=== PATIENT | male | born 1990 | race Two or more races ===

== ENCOUNTER 2022-01-08 13:21 | Emergency (ER) | payer MEDICAID ==
[~2022-01-08] VITALS: Ht 182.9 cm; Wt 90.0 kg
[~2022-01-08 13:21] MED LIST: LORA0.5T20 PO; PANT40TA2 PO; QUET200T30; SEROQUEL; VISTARIL
[2022-01-08] MEDS ORDERED: SODIUM CHLORIDE 0.9% 500 ML IVB ONE (13:30)
[2022-01-08 13:50] LABS: Basophils # (auto) 0.1 10 ^3/uL (0-0.2); Basophils % (auto) 0.8 % (0.0-2.0); Eosinophils # (auto) 0 10 ^3/uL (0-0.8); Eosinophils % (auto) 0.1 % (0.0-7.0); Hematocrit 34.4 % (41.0-53.0); Hemoglobin 11.6 g/dL (13.5-17.5); Lymphocytes # (auto) 1.3 10 ^3/uL (0.4-5.4); Lymphocytes % (auto) 14.7 % (10.0-50.0); Mean Corpuscular Hemoglobin 30.3 pg (28.0-32.0); Mean Corpuscular Hgb Conc. 33.7 g/dL (32.0-36.0); Mean Corpuscular Volume 89.8 fL (80.0-100.0); Monocytes # (auto) 0.6 10 ^3/uL (0-1.3); Neutrophils # (auto) 6.9 10 ^3/uL (1.6-8.6); Neutrophils % (auto) 77.4 % (37.0-80.0); Red Blood Cells 3.83 10^6/uL (4.5-5.90); Red Cell Distribution Width 13.5 % (11.8-14.3); White Blood Cell 8.9 10^3/uL (4.4-10.8)
[2022-01-08 14:13] LABS: Albumin 3.3 g/dL (3.4-5.0); Calcium 7.9 mg/dL (8.5-10.1); Salicylate 1.8 mg/dL (2.8-20.0)
[2022-01-08 14:16] LABS: Bilirubin, Total 0.4 mg/dL (0.2-1.0); Total Protein 6.8 g/dL (6.4-8.2)
[2022-01-08 14:17] LABS: BUN/Creatinine Ratio 6.8
[2022-01-08 14:19] LABS: Potassium 2.9 mmol/L (3.5-5.1)
[2022-01-08 14:20] LABS: Acetaminophen < 2.0 ug/mL (10-30)
[2022-01-08] MEDS ORDERED: POTASSIUM CHL 20MEQ/100ML 100 ML IV ONE (14:30)
[2022-01-08 15:01] LABS: Urine WBC None Seen /hpf (0 - 3)
[2022-01-08 15:09] LABS: Urine Bacteria NONE SEEN /hpf (None Seen); Urine Blood Negative /uL (Negative); Urine Specific Gravity 1.036 (1.001-1.035)
[2022-01-08 15:33] LABS: Alcohol, Urine < 3.0 mg/dL (0-10); Amphetamine Screen, Urine POSITIVE (NEGATIVE); Barbiturate Scree,Urine NEGATIVE (NEGATIVE); Benzodiazephine Screen, Urine POSITIVE (NEGATIVE); Cannabinoid Screen, Urine POSITIVE (NEGATIVE); Cocaine Screen, Urine NEGATIVE (NEGATIVE); Opiate Scree,Urine POSITIVE (NEGATIVE); Phencyclidine Screen, Urine NEGATIVE (NEGATIVE)
[2022-01-08] MEDS ORDERED: ONDANSETRON HCL 4 MG/2 ML VIAL IV ONE (17:00)
[2022-01-08] MEDS ORDERED: MORPHINE SULFATE 4 MG/ML SYR/VIAL IV ONE (21:30)
[2022-01-09 00:45] LABS: Albumin 3.5 g/dL (3.4-5.0); BUN/Creatinine Ratio 7.8; Calcium 8.6 mg/dL (8.5-10.1); Potassium 3.5 mmol/L (3.5-5.1)
[2022-01-09 00:47] LABS: Bilirubin, Total 0.4 mg/dL (0.2-1.0); Total Protein 7.1 g/dL (6.4-8.2)
[2022-01-09] MEDS ORDERED: MORPHINE SULFATE 4 MG/ML SYR/VIAL IV ONE ×2 (01:30→08:15)
[2022-01-09] MEDS ORDERED: ONDANSETRON HCL 4 MG/2 ML VIAL IV ONE (08:15)
[2022-01-09] MEDS ORDERED: chlordiazePOXIDE HCL 25 MG CAP PO ONE (10:15)
[2022-01-09] MEDS: GABAPENTIN 300 MG CAP PO SCH ×3 (10:27→22:49)
[2022-01-09] MEDS ORDERED: PANTOPRAZOLE 40 MG/10 ML VIAL INJ IV ONE (20:30)
[2022-01-09] MEDS ORDERED: MORPHINE SULFATE INJ 2 MG/ml SYRG IV ONE (20:30)
[2022-01-10] MEDS: GABAPENTIN 300 MG CAP PO SCH ×3 (06:35→22:21)
[2022-01-10] MEDS ORDERED: MORPHINE SULFATE 4 MG/ML SYR/VIAL IV ONE (08:15)
[2022-01-10] MEDS ORDERED: ONDANSETRON HCL 4 MG/2 ML VIAL IV ONE (08:15)
[2022-01-10] MEDS: THIAMINE HCL 100 MG TAB PO SCH (10:45)
[2022-01-10] MEDS: FOLIC ACID 1 MG TAB PO SCH (10:45)
[2022-01-10] MEDS ORDERED: IBUPROFEN 800 MG TAB PO ONE (14:15)
[2022-01-10] MEDS ORDERED: HYDROcodone-ACET 10/325MG TAB PO ONE (14:30)
[2022-01-10] MEDS ORDERED: diphenhdrAMINE HCL 25 MG CAP PO ONE ×2 (14:30→23:45)
[2022-01-10] MEDS ORDERED: traMADol HCL 50 MG TAB PO ONE (23:30)
[2022-01-11] MEDS: GABAPENTIN 300 MG CAP PO SCH ×3 (06:13→22:13)
[2022-01-11] MEDS: FOLIC ACID 1 MG TAB PO SCH (10:00)
[2022-01-11] MEDS: THIAMINE HCL 100 MG TAB PO SCH (10:00)
[2022-01-11 12:49] LABS: Urine Bacteria NONE SEEN /hpf (None Seen); Urine Blood Negative /uL (Negative); Urine Hyaline Cast FEW /lpf (0 - 2); Urine Specific Gravity 1.012 (1.001-1.035); Urine WBC <1 /hpf (0 - 3)
[2022-01-11] MEDS ORDERED: chlordiazePOXIDE HCL 25 MG CAP PO ONE (13:45)
[2022-01-11] MEDS ORDERED: LORazepam 0.5 MG TAB PO ONE (16:15)
[2022-01-11] MEDS ORDERED: GABAPENTIN 300 MG CAP PO ONE (16:15)
[2022-01-11] MEDS ORDERED: GABAPENTIN 300 MG CAP ONE (22:10)
[2022-01-12] MEDS ORDERED: LORazepam 0.5 MG TAB ONE (00:14)
[2022-01-12] MEDS ORDERED: LORazepam 0.5 MG TAB PO ONE (00:15)
[2022-01-12] MEDS ORDERED: HYDROcodone-ACET 5/325MG TAB PO ONE ×2 (00:45→15:00)
[2022-01-12] MEDS ORDERED: HYDROcodone-ACET 5/325MG TAB ONE (00:46)
[2022-01-12] MEDS: GABAPENTIN 300 MG CAP PO SCH ×3 (06:00→22:00)
[2022-01-12] MEDS: THIAMINE HCL 100 MG TAB PO SCH (10:22)
[2022-01-12] MEDS: FOLIC ACID 1 MG TAB PO SCH (10:22)
[2022-01-12 21:00] VITALS: BP 118/76
[2022-01-12] MEDS ORDERED: diphenhdrAMINE HCL 25 MG CAP PO ONE (23:30)
== END 2022-01-13 18:02 | disposition home or self-care (01) ==
LOC: EDBD 13:21 → EDUNIT# 13:21 → ER 13:24
DX: S62.102A Fracture of unspecified carpal bone, left wrist, initial encounter for closed fracture (principal); T40.422A Poisoning by tramadol, intentional self-harm, initial encounter; F32.9 Major depressive disorder, single episode, unspecified; K21.9 Gastro-esophageal reflux disease without esophagitis; F17.210 Nicotine dependence, cigarettes, uncomplicated; F12.10 Cannabis abuse, uncomplicated; Z79.899 Other long term (current) drug therapy; X58.XXXA Exposure to other specified factors, initial encounter; Y93.89 Activity, other specified; Y92.89 Other specified places as the place of occurrence of the external cause; Y99.8 Other external cause status
CPT/HCPCS: 36415; 80053; 80307; 80320; 80329; 81001; 85025; 96361; 96374; 96375; 96376; 99285; C9113; J2270; J2405; J3480; J7030

== ENCOUNTER 2022-01-29 23:52 | Emergency (ER) | payer MEDICAID ==
[~2022-01-29] VITALS: Ht 188 cm; Wt 77.0 kg
[2022-01-30] MEDS ORDERED: SODIUM CHLORIDE 0.9% 1,000 ML IV ONE ×2 (00:15→05:15)
[2022-01-30 01:13] LABS: Basophils # (auto) 0.1 10 ^3/uL (0-0.2); Basophils % (auto) 1.5 % (0.0-2.0); Eosinophils # (auto) 0.2 10 ^3/uL (0-0.8); Eosinophils % (auto) 2.1 % (0.0-7.0); Hematocrit 43.8 % (41.0-53.0); Hemoglobin 14.8 g/dL (13.5-17.5); Lymphocytes # (auto) 2.2 10 ^3/uL (0.4-5.4); Lymphocytes % (auto) 25.4 % (10.0-50.0); Mean Corpuscular Hemoglobin 30.8 pg (28.0-32.0); Mean Corpuscular Hgb Conc. 33.8 g/dL (32.0-36.0); Mean Corpuscular Volume 91.1 fL (80.0-100.0); Monocytes # (auto) 0.8 10 ^3/uL (0-1.3); Neutrophils # (auto) 5.4 10 ^3/uL (1.6-8.6); Nucleated Red Blood Cells % 0.1 %; Red Blood Cells 4.81 10^6/uL (4.5-5.90); Red Cell Distribution Width 14.1 % (11.8-14.3); White Blood Cell 8.7 10^3/uL (4.4-10.8)
[2022-01-30 01:26] LABS: Salicylate 2.6 mg/dL (2.8-20.0)
[2022-01-30 01:27] LABS: Calcium 8.5 mg/dL (8.5-10.1); Potassium 3.7 mmol/L (3.5-5.1)
[2022-01-30 01:30] LABS: Acetaminophen < 2.0 ug/mL (10-30); BUN/Creatinine Ratio 8.2
[2022-01-30 01:32] LABS: Bilirubin, Total 0.2 mg/dL (0.2-1.0); Total Protein 7.7 g/dL (6.4-8.2)
[2022-01-30] MEDS ORDERED: LORazepam 2MG/ML-1ML VIAL IV ONE ×2 (05:15→10:45)
[2022-01-30] MEDS ORDERED: chlordiazePOXIDE HCL 25 MG CAP PO ONE (05:15)
[2022-01-30] MEDS ORDERED: ONDANSETRON HCL 4 MG/2 ML VIAL IV ONE (05:15)
[2022-01-30 06:01] LABS: Urine Bacteria NONE SEEN /hpf (None Seen); Urine Blood Negative /uL (Negative); Urine WBC <1 /hpf (0 - 3)
[2022-01-30 06:11] LABS: Amphetamine Screen, Urine NEGATIVE (NEGATIVE); Barbiturate Scree,Urine NEGATIVE (NEGATIVE); Benzodiazephine Screen, Urine POSITIVE (NEGATIVE); Cannabinoid Screen, Urine POSITIVE (NEGATIVE); Cocaine Screen, Urine NEGATIVE (NEGATIVE); Opiate Scree,Urine NEGATIVE (NEGATIVE)
[2022-01-30 06:18] LABS: Phencyclidine Screen, Urine NEGATIVE (NEGATIVE)
[2022-01-30] MEDS ORDERED: SODIUM CHLORIDE 0.9% 2,000 ML IV ONE (08:15)
[2022-01-30] MEDS ORDERED: PROCHLORPERAZINE EDISYLATE 5 MG/ML 2ML VIAL IV ONE (10:30)
[2022-01-30 11:00] VITALS: BP 125/73
[2022-01-30] MEDS ORDERED: CHL10C PO (17:18)
[2022-01-30] MEDS ORDERED: chlordiazePOXIDE HCL 5 MG CAP PO ONE (17:30)
== END 2022-01-30 17:36 | disposition home or self-care (01) ==
LOC: ER 23:52
DX: R45.851 Suicidal ideations (principal); K21.9 Gastro-esophageal reflux disease without esophagitis; F17.210 Nicotine dependence, cigarettes, uncomplicated; Z20.822 Contact with and (suspected) exposure to COVID-19
CPT/HCPCS: 36415; 70450; 71045; 80053; 80307; 80320; 80329; 81001; 85025; 87426; 93005; 96361; 96374; 96375; 96376; 99285; J0780; J2060; J2405; J7030

== ENCOUNTER 2024-04-05 02:30 | Emergency (ER) | payer MEDICAID ==
[~2024-04-05] VITALS: Ht 172.7 cm; Wt 77.0 kg
[~2024-04-05 02:30] MED LIST changes: +CHL10C PO; +LORA-1121 PO; -LORA0.5T20 PO
--- NOTE | 2024-04-05 02:47 | ED.PDOC ---
Psychiatric HPI Comments 33-year-old male who came to ER via EMS for suicide ideations. Patient does have history of alcohol and substance abuse., does have history of anxiety and depression, but has been off his medications. Patient has been binge drinking recently because he is depressed due to recent of a friend. He denies any recent drug use. States he feels suicidal recently but has no concrete plans on how to do it. Denies being homicidal. Denies any hallucinations. Chief Complaint: Suicidal Time Seen by MD: 02:47 Primary Care Provider: NONE Reviewed Notes: Nurses Notes Information Source: Patient Mode of Arrival: EMS Severity: Unable to Care for Self, Unable to Control Self Severity of Pain: Moderate Severity of Mental Status: Moderate Severity of Symptoms: Moderate Timing: Hours Presents with: Depression, Anxiety, Unclear Thinking, Suicidal Ideation Circumstance: Medical Clearance, Causing a Disturbance Current substance abuse: ETOH, Amphetamines Stressors: Relationships History of: Depression, Anxiety, Alcoholism, Substance Abuse Associated signs and symptoms: Depression, Hopeless, Anxiety, ETOH, Amphetamines Past Medical History PAST MEDICAL HISTORY: Anxiety, Depression, GERD, PUD Surgical History: Denies all surgeries Family History Family History: Family hx of HTN Social History Smoker: Cigarettes Alcohol: Heavy Drugs: Marijuana, Methamphetamine Lives In: Home Constitutional: denies: chills, diaphoresis, fatigue, fever, malaise, sweats, weakness, others EENTM: denies: blurred vision, double vision, ear bleeding, ear discharge, ear drainage, ear pain, ear ringing, eye pain, eye redness, hearing loss, mouth pain, mouth swelling, nasal discharge, nose bleeding, nose congestion, nose pain, photophobia, tearing, throat pain, throat swelling, voice changes, others Respiratory: denies: cough, hemoptysis, orthopnea, SOB at rest, shortness of breath, SOB with excertion, stridor, wheezing, others Cardiovascular: denies: chest pain, dizzy spells, diaphoresis, Dyspnea on exertion, edema, irregular heart beat, left arm pain, lightheadedness, palpitations, PND, syncope, others Gastrointestinal: denies: abdomen distended, abdominal pain, blood streaked bowels, constipated, diarrhea, dysphagia, difficulty swallowing, hematemesis, melena, nausea, poor appetite, poor fluid intake, rectal bleeding, rectal pain, vomiting, others Genitourinary: denies: burning, dysuria, flank pain, frequency, hematuria, incontinence, penile discharge, penile sore, pain, testicle pain, testicle swelling, urgency, others Neurological: denies: dizziness, fainting, headache, left sided numbness, left sided weakness, numbness, paresthesia, pre-existing deficit, right sided numbness, right sided weakness, seizure, speech problems, tingling, tremors, weakness, others Musculoskeletal: denies: back pain, gout, joint pain, joint swelling, muscle pain, muscle stiffness, neck pain, others Integumetry: denies: bruises, change in color, change in hair/nails, dryness, laceration, lesions, lumps, rash, wounds, others Allergic/Immunocompromised: denies: Difficulty Healing, Frequent Infections, Hives, Itching, others Hematologic/Lymphatic: denies: anemia, blood clots, easy bleeding, easy bruising, swollen glands, others Endocrine: denies: excessive hunger, excessive sweating, excessive thirst, excessive urination, flushing, intolerance to cold, intolerance to heat, unexplained weight gain, unexplained weight loss, others Psychiatric: reports: anxiety, depression, hopeless, panic disorder, suicidal; denies: bipolar disorder, schizophrenia, sleepless, others Physical Exam General Appearance: No Apparent Distress, Normal HEENT: Normal ENT Inspection, Pharynx Normal, TMs Normal Neck: Full Range of Motion, Non-Tender, Normal, Normal Inspection Respiratory: Chest Non-Tender, Lungs Clear, No Accessory Muscle Use, No Respiratory Distress, Normal Breath Sounds Cardiovascular: No Edema, No JVD, No Murmur, No Gallop, Normal Peripheral Pulses, Regular Rate/Rhythm Breast Exam: Deferred Gastrointestinal: No Organomegaly, Non Tender, No Pulsatile Mass, Normal Bowel Sounds, Soft Genitalia: Deferred Pelvic: Deferred Rectal: Deferred Extremities: No calf tenderness, Normal capillary refill, Normal inspection, Normal range of motion, Non-tender, No pedal edema Musculoskeletal : Apperance: Normal Neurologic: Alert, registered mail clerk II-XII nml as Tested, No Motor Deficits, Normal Affect, Normal Mood, No Sensory Deficits Cerebellar Function: Normal Reflexes: Normal Skin: Dry, Normal Color, Warm Lymphatic: No Adenopathy Was a procedure done? Was a procedure done?: No Psych Differential Dx Psych. Differential Dx: Anxiety, Depression, Hopeless, Panic Disorder, Suicidal Suicidal Differential Dx: Alcohol Abuse, Anxiety, Depression X-Ray, Labs, Meds, VS Vital Signs Date Time Temp Pulse Resp B/P (MAP) Pulse Ox O2 Delivery O2 Flow Rate FiO2 04/05/24 02:30 98.3 116 22 142/90 (107) 99 Lab Test 04/05/24 02:41 Range/Units White Blood Count Pending Red Blood Count Pending Hemoglobin Pending Hematocrit Pending Mean Corpuscular Volume Pending Mean Corpuscular Hemoglobin Pending Mean Corpuscular Hemoglobin Concent Pending Red Cell Distribution Width Pending Platelet Count Pending Mean Platelet Volume Pending Neutrophils (%) (Auto) Pending Lymphocytes (%) (Auto) Pending Monocytes (%) (Auto) Pending Basophils (%) (Auto) Pending Neutrophils # (Auto) Pending Lymphocytes # (Auto) Pending Monocytes # (Auto) Pending Sodium Level Pending Potassium Level Pending Chloride Level Pending Carbon Dioxide Level Pending Anion Gap Pending Blood Urea Nitrogen Pending Creatinine Pending Glomerular Filtration Rate Calc Pending BUN/Creatinine Ratio Pending Serum Glucose Pending Calcium Level Pending Salicylates Level Pending Acetaminophen Level Pending Plasma/Serum Blood Alcohol Pending Current Medications Medications (Trade) Dose Ordered Sig/Rebeca Route Start Time Stop Time Status Last Admin Haloperidol Lactate (Haldol) 10 mg ONCE ONCE IM 04/05/24 02:45 04/05/24 02:46 DC 04/05/24 03:05 Time of 1ST Reevaluation: 02:43 Reevaluation 1ST: Unchanged Patient Education/Counseling: Diagnosis, Treatment Family Education/Counseling: No Family Present Departure 1 Departure Time of Disposition: 03:11 (Patient to be evaluated for suicidal ideation.) Impression: Primary Impression: Suicide ideation Disposition: 30 STILL A PATIENT Condition: Serious Critical Care Note Critical Care Time?: No Stability Stability form required: No Heart Score Heart Score: Heart Score Response (Comments) Value History N/A 0 EKG N/A 0 Age N/A 0 Risk Factors N/A 0 Troponin N/A 0 Total 0 I personally scribed for ALFONSO SUAREZ MD ([email or web address]) on 04/05/24 at 02:47. Electronically submitted by Prosper Smith ([email or web address]). ALFONSO SUAREZ MD Apr 05, 2024 02:47
[2024-04-05] MEDS: HALOPERIDOL LACTATE 5 MG/ML INJ VIAL IM ONE (03:05)
[2024-04-05 03:10] VITALS: PULSE 89; RESP 18; O2SAT 95
[2024-04-05] MEDS: LORazepam 2MG/ML-1ML VIAL IV ONE (03:16)
[2024-04-05 03:17] LABS: Basophils # (auto) 0.1 10 ^3/uL (0-0.2); Basophils % (auto) 1.1 % (0.0-2.0); Eosinophils # (auto) 0.1 10 ^3/uL (0-0.8); Eosinophils % (auto) 0.9 % (0.0-7.0); Hematocrit 51.2 % (41.0-53.0); Hemoglobin 17.2 g/dL (13.5-17.5); Lymphocytes # (auto) 2.2 10 ^3/uL (0.4-5.4); Lymphocytes % (auto) 28.1 % (10.0-50.0); Mean Corpuscular Hemoglobin 30.4 pg (28.0-32.0); Mean Corpuscular Hgb Conc. 33.6 g/dL (32.0-36.0); Mean Corpuscular Volume 90.4 fL (80.0-100.0); Monocytes # (auto) 0.7 10 ^3/uL (0-1.3); Monocytes % (auto) 8.3 % (0.0-12.0); Neutrophils # (auto) 4.8 10 ^3/uL (1.6-8.6); Neutrophils % (auto) 61.6 % (37.0-80.0); Nucleated Red Blood Cells % 0.1 %; Platelet Count (auto) 303 10^3/uL (140-450); Red Blood Cells 5.66 10^6/uL (4.5-5.90); Red Cell Distribution Width 13.7 % (11.8-14.3); White Blood Cell 7.9 10^3/uL (4.4-10.8)
[2024-04-05] MEDS: LORazepam 2MG/ML-1ML VIAL IM ONE (03:17)
[2024-04-05 03:28] LABS: Salicylate < 3.0 mg/dL (-30)
[2024-04-05 03:32] LABS: Chloride 111 mmol/L (98-107); Potassium 3.1 mmol/L (3.5-5.1); Sodium 146 mmol/L (136-145)
[2024-04-05 03:33] LABS: Anion Gap 15 (5-15); Calcium 10.1 mg/dL (8.7-10.4); Carbon Dioxide 20 mmol/L (20-31)
[2024-04-05 03:38] LABS: BUN/Creatinine Ratio 5.3 (10.0-20.0); Blood Urea Nitrogen < 5 mg/dL (9-23); Glucose 100 mg/dL (74-106)
[2024-04-05 03:49] LABS: Blood Alcohol 296.3 mg/dL (<10)
[2024-04-05 03:52] LABS: Acetaminophen < 2.0 UG/ML (10.0-20.0)
[2024-04-05 08:00] VITALS: PULSE 72; RESP 18; O2SAT 94
[2024-04-05 16:00] LABS: Urine Bacteria None Seen /hpf (None Seen)
[2024-04-05] MEDS ORDERED: LORazepam 0.5 MG TAB PO ONE (16:00)
[2024-04-05] MEDS: LORazepam 0.5 MG TAB PO ONE (16:04)
[2024-04-05 16:09] LABS: Urine Blood Negative /uL (Negative); Urine Clarity Clear (Clear); Urine Color Yellow (Yellow); Urine Mucus FEW (None Seen); Urine Protein, UAD TRACE (Negative); Urine Specific Gravity 1.018 (1.001-1.035); Urine Urobilinogen Normal (Negative); Urine WBC 1 /hpf (0 - 3)
[2024-04-05 16:18] LABS: Amphetamine Screen, Urine Pos (NEGATIVE); Barbiturate Scree,Urine Neg (NEGATIVE); Benzodiazephine Screen, Urine Neg (NEGATIVE); Cannabinoid Screen, Urine Pos (NEGATIVE); Cocaine Screen, Urine Pos (NEGATIVE); Opiate Scree,Urine Neg (NEGATIVE); Phencyclidine Screen, Urine Neg (NEGATIVE)
[2024-04-05 19:32] VITALS: BP 112/67; PULSE 75; RESP 16; TEMP 98.2; O2SAT 95
--- NOTE | 2024-04-05 23:12 | DVHINCON2 ---
Date of Service if different f: Apr 05, 2024 Time of Service: 23:11 Consult Consult Note PSYCHIATRY ED NEW CONSULT HPI: 33 yo M pt with PPH of depression, bipolar, and anxiety presents to ED BIBA for safety, psychiatric stabilization and possible med initiation/optimization in setting of med noncompliance, ETOH intoxication, depression, anxiety, and passive SI. Psychiatry consulted for safety evaluation and recommendations in context of current presentation Per pt, reports several weeks ago discovered body of close friend which resulted pt to binge drink ETOH and worsening mood, anxiety and passive SI. Pt also reports recent med noncompliance. Pt now sober and no longer appears intoxicated. Currently endorses some depressed mood, racing thoughts, and non-specific anxiety symptoms but denies hopelessness, helplessness, isolation, negative thoughts, loss of interest, or anhedonia. Denies panic/OCD/PTSD symptoms. Sleep/appetite/energy/conc relatively WNL. Adamantly denies SI/HI. Denies AVH/paranoia/catatonic/perceptual disturbances/personality changes. No overt manic, psychotic, major depressive, cognitive, dissociative phenomena, panic, or somatic symptoms noted. Appears future oriented/goal directed Pt currently does have psychiatrist/therapist out in community although unclear f/u appts. Currently not on any psychotropic agents for past several months. Prior psych med trials include Li, depakote, Hydroxyzine. Some hx of med noncompliance. Also self medicating mood symptoms with ETOH and THC over past several weeks, appears to have long hx of THC/ETOH dependency and ecstasy abuse. Never , one child with some contact, unemployed, lives with family, no legal issues, some support system noted (immediate family). Unknown trauma hx. Unknown FH. No acute medical issues, hx of seizures/TBI, or recent head injuries, NKDA Does have hx of suicide attempt x 1 via cutting resulting in prior psych hospitalization in 2022. Denies history of violence, unprovoked aggression, or assaultive behaviors. Denies recent hx of impulsivity, attention seeking behavi ors, anger outbursts, emotional dysregulation, mood reactivity, or engaging in risky behaviors. Does not have access to firearms. Currently denies SI/HI. Identifies self/family as PPF. No safety concerns noted during encounter. MSE: General Appearance/Behavior: Alert and awake; appears stated age, well developed, fair grooming and hygiene; calm and cooperative, fair eye contact, no PMA/PMR Speech: coherent, rrr Thought Process: linear, logical, appears goal-directed Thought Content: Abnormal Thoughts and Perceptions: None Homicidality / Violent Thoughts: None Suicidality: adamantly denies SI Hallucinations: denies AVH Delusions: denies paranoia, persecutory, or grandiose delusions Obsessions /compulsions : None Judgment and Insight: fair/improved judgment with fair insight Mood & Affect: "little tired" with mood-congruent, minimally constricted/restricted, appropriate Orientation: oriented to person, place, time Attention/Concentration: appears intact Memory: grossly intact Language: no unusual or inappropriate language Assessment: 33 yo M pt with PPH of depression, bipolar, and anxiety presents to ED BIBA for safety, psychiatric stabilization and possible med initiation/optimization in setting of med noncompliance, ETOH intoxication, depression, anxiety, and passive SI. Currently denies SI/HI/AVH. Linear and appears future oriented/ goal directed in thought. Identifies several protective factors including a desire to live, family support, and seeking employment. Presently, pt does not show any signs of immediate danger to self or others that would warrant a higher level of care. Thus, pt does not meet criteria for 5150 or involuntary inpatient psych admission as is not DTS, DTO or GD although voluntary inpt psychiatric hospitalization was offered but pt respectfully declined. No acute safety concerns noted. Acute suicide risk is nonexistent to relatively low. Pts symptoms should be able to be managed safely in an outpatient setting with combination of psychopharmacology and psychotherapy with good prognosis if pt follows through with appropriate treatment recommendations. Pt currently does have psychiatrist/therapist out in community and remains future oriented to follow up with outpatient MH providers over the next several weeks for ongoing med management/psychotx Meantime, do feel that patient would benefit from a PRN anxiolytic to address anxiety symptoms that have been exacerbated prior to this admission. Primary Diagnosis: Adjustment disorder with depressed mood and anxiety. Mood dis order unspecified. ETOH use disorder, moderate. R/o SIMD Plan: Does not warrant involuntary inpatient psychiatric hospitalization or 5150 hold at this time No acute safety concerns Pt can be safely discharged back to current residence Resume outpatient psychotropics - med compliance emphasized Recommend discharging pt on 3-4 week rx for Hydroxyzine 50 mg bid prn anxiety Risks/benefits/alternative treatments discussed, informed consent provided by pt Supportive tx/motivational interviewing provided, discussed safety plan with pt Emphasized sleep hygiene, LIMIT THC/EtOH intake, abstain from IDU, and social activation Encouraged mindfulness techniques (reading, walking, meditation, exercise, deep breathing) during times of stress Pt planning on pursuing ongoing therapy/med management with outpatient MH providers over next several weeks Instructed pt to call [phone] or return to ED if mood symptoms worsen or new onset SI/HI upon discharge Pt verbalized understanding and is receptive to above tx plan This case was discussed with ED nurse/provider and all parties in agreement with above tx plan Tra Rodriguez MD Plan discussed with: Patient TRA RODRIGUEZ MD Apr 05, 2024 23:12
[2024-04-06] MEDS ORDERED: HYDR50TA32 PO (00:56)
--- NOTE | 2024-04-06 00:56 | ED.PDOC ---
Departure 1 Departure Time of Disposition: 03:11 (Patient to be evaluated for suicidal ideation.) Impression: Primary Impression: Suicide ideation Disposition: 30 STILL A PATIENT Condition: Serious Additional Instructions: It is important to follow up with the regular doctors. e-Prescriptions Hydroxyzine HCl (Hydroxyzine Hydrochloride) 50 Mg Tab 50 MG PO BID PRN for 30 Days, #60 TAB Prov: ALFONSO SUAREZ MD 04/06/24 Discharged With: Relative ALFONSO SUAREZ MD Apr 06, 2024 00:56
== END 2024-04-06 01:35 | disposition home or self-care (01) ==
LOC: EDBD 02:30 → ER 02:30
DX: R45.851 Suicidal ideations (principal); F41.9 Anxiety disorder, unspecified; K21.9 Gastro-esophageal reflux disease without esophagitis; F17.210 Nicotine dependence, cigarettes, uncomplicated; F12.90 Cannabis use, unspecified, uncomplicated; F15.90 Other stimulant use, unspecified, uncomplicated
CPT/HCPCS: 36415; 80048; 80307; 80320; 80329; 81001; 85025; 96372; 99285; J1630; J2060

== ENCOUNTER 2025-01-08 17:24 | Emergency (ER) | payer MEDICAID ==
[~2025-01-08] VITALS: Ht 185.4 cm; Wt 70.4 kg
[~2025-01-08 17:24] MED LIST changes: +HYDR50TA32 PO
[2025-01-08 17:25] VITALS: BP 152/116; PULSE 130; RESP 18; TEMP 98.1; O2SAT 97
--- NOTE | 2025-01-08 18:29 | ED.PDOC ---
Back pain HPI HPI Comments Pt presents to the ER with C/O back pain x2 days. Per pt he was wrestling with friend and fell on the end of couch with friend falling on top of him. Pt states he heard he back "crack" and has been having severe pain since. Patient complaining of mid back pain over spine radiating left and right side 10/10 on pain scale sharp and shooting pain. States nothing makes it better has not tried any [id number] medications. Patient denies numbness, weakness, loss of bowel bladder control, saddle anesthesia Chief Complaint: Back Pain Time Seen by MD: 18:12 Primary Care Provider: NONE Reviewed Notes: Nurses Notes, Medications, Allergies Allergies: Coded Allergies: NO KNOWN ALLERGIES (Unverified , 01/15/10) Home Meds Active Scripts Hydroxyzine HCl (Hydroxyzine Hydrochloride) 50 Mg Tab, 50 MG PO BID PRN for 30 Days, #60 TAB Prov:ALFONSO SUAREZ MD 04/06/24 Chlordiazepoxide Hcl (Ni-1) (I (Librium) 10 Mg Cap, 10 MG PO DAILY for 10 Days, #10 CAP Prov:RAINA FARR MD 01/30/22 Reported Medications Lorazepam (ATIVAN TABLET) 0.5 Mg Tb, 1 TAB PO DAILY, #30 TAB 05/24/19 Pantoprazole Sodium Sesquihydr (Protonix) 40 Mg Tab, 40 MG PO DAILY, #30 TAB 05/24/19 Quetiapine Fumerate (Seroquel) 200 Mg Tab 03/21/10 [Vistaril] No Conflict Check 03/08/10 [Seroquel] No Conflict Check 03/08/10 Information Source: Patient Mode of Arrival: Ambulatory Past Medical History PAST MEDICAL HISTORY: Anxiety, Depression, GERD, PUD Surgical History: Denies all surgeries Family History Family History: Family hx of HTN Social History Smoker: Cigarettes Alcohol: Heavy Drugs: Marijuana, Methamphetamine Lives In: Home All Other Systems: Reviewed and Negative (see hpi ) Physical Exam General Appearance: No Apparent Distress, Normal HEENT: Pharynx Normal Neck: Full Range of Motion, Non-Tender Respiratory: Lungs Clear, No Respiratory Distress, Normal Breath Sounds Cardiovascular: No Edema, No JVD, No Murmur, No Gallop, Normal Peripheral Pulses, Regular Rate/Rhythm Breast Exam: Deferred Gastrointestinal: No Organomegaly, Non Tender, No Pulsatile Mass, Normal Bowel Sounds, Soft Genitalia: Deferred Pelvic: Deferred Rectal: Deferred Extremities: Normal capillary refill, Normal range of motion, Non-tender, No pedal edema Musculoskeletal : Location: Bilateral Extremity Location: Back (Moderate to severe tenderness palpated over T6 through T12 bilateral musculature paraspinal muscles tenderness palpated over spine without crepitus or step-offs. Strength sensory motion intact positive radial and pedal pulses) Apperance: Normal Neurologic: Alert, No Motor Deficits, Normal Affect, Normal Mood, No Sensory Deficits Cerebellar Function: Normal Reflexes: Normal Skin: Dry, Normal Color, Warm Lymphatic: No Adenopathy Was a procedure done? Was a procedure done?: No Back Pain Differential Dx Differential Diagnosis: Fracture, Musculoskeletal Pain X-Ray, Labs, Meds, VS Vital Signs Date Time Temp Pulse Resp B/P (MAP) Pulse Ox O2 Delivery O2 Flow Rate FiO2 01/08/25 17:25 98.1 130 18 152/116 97 98.1 Current Medications Medications (Trade) Dose Ordered Sig/Rebeca Route Start Time Stop Time Status Last Admin Ketorolac Tromethamine (Toradol Injection) 60 mg ONCE ONCE IM 01/08/25 18:45 01/08/25 18:46 DC 01/08/25 19:04 Acetaminophen/ Hydrocodone Bitart ([place] 10/325MG Tab) 1 tab ONCE ONCE PO 01/08/25 18:45 01/08/25 18:46 DC 01/08/25 19:04 Dexamethasone Sodium Phosphate (Decadron Injection) 10 mg ONCE ONCE IM 01/08/25 18:45 01/08/25 18:46 DC 01/08/25 19:04 X-Ray, Labs, Meds, VS Comment FINDINGS/IMPRESSION: Displaced fractures of the right 3rd and 4th rib. There is no pneumothorax. Thoracic spine x-ray noted right 3rd and 4th rib displaced fractures, without pneumothorax. Patient given Toradol 60 mg IM, Decadron 10 mg IM, and [place] 10 mg p.o.. Reports improvement pain and function requesting discharge at this time. Script trial of indomethacin advised to take medications as prescribed side effects discussed. Advised to avoid taking child breaths or splinting. P in 2-3 days as necessary ER return precautions given patient indicates understanding agrees with discharge plan of care. Images Reviewed?: Images reviewed and evaluated by me Time of 1ST Reevaluation: 18:30 Reevaluation 1ST: Unchanged Time of 2ND Reevaluation: 19:17 Reevaluation 2ND: Improved Patient Education/Counseling: Diagnosis, Treatment, Prognosis, Need For Follow Up Family Education/Counseling: Diagnosis, Treatment, Prognosis, Need For Follow Up SEPSIS Sepsis Screen Date sepsis recognized/suspect: Jan 08, 2025 Time Sepsis recognized/suspect: 1725 Recent Procedure: No On Antibiotic Therapy: No Respiratory Rate >20: No Heart Rate >90: Yes Temp<36 C (96.8 F) or >38.3 C: No SBP <90 or MAP <65 mmHG: No New Acute Mental Status Change: No Is the patient on CPAP, BIPAP,: No Physician Orders Spine Thoracic 2view (01/08/25 18:31) Vital Signs Date Time Temp Pulse Resp B/P (MAP) Pulse Ox O2 Delivery O2 Flow Rate FiO2 01/08/25 17:25 98.1 130 18 152/116 97 98.1 Medications Medications Dose Ordered Sig/Rebeca Route Start Time Stop Time Status Last Admin Dose Admin Acetaminophen/ Hydrocodone Bitart 1 tab ONCE ONCE PO 01/08/25 18:45 01/08/25 18:46 DC 01/08/25 19:04 Dexamethasone Sodium Phosphate 10 mg ONCE ONCE IM 01/08/25 18:45 01/08/25 18:46 DC 01/08/25 19:04 Ketorolac Tromethamine 60 mg ONCE ONCE IM 01/08/25 18:45 01/08/25 18:46 DC 01/08/25 19:04 Departure 1 Departure Time of Disposition: 19:15 Impression: Primary Impression: Multiple fractures of ribs Qualified Codes: S22.41XA - Multiple fractures of ribs, right side, initial encounter for closed fracture Disposition: 01 HOME / SELF CARE / HOMELESS Condition: Stable e-Prescriptions Indomethacin (Indomethacin) 50 Mg Cap 1 CAP PO TID PRN for 5 Days, #30 CAP Prov: DOROTHY MORALES 01/08/25 Discharged With: Relative (Mother) Critical Care Note Critical Care Time?: No Stability Stability form required: DOROTHY Rose Jan 08, 2025 18:29
[2025-01-08] MEDS: HYDROcodone-ACET 10/325MG TAB PO ONE (19:04)
[2025-01-08] MEDS: KETOROLAC TROMETH 60MG/2ML VIAL IM ONE (19:04)
--- NOTE | 2025-01-08 19:04 | DVH ---
CLINICAL INDICATION: S/P INJURY/PAIN TECHNIQUE: 2 radiographic views of the thoracic spine were obtained. Comparison: None FINDINGS/IMPRESSION: Displaced fractures of the right 3rd and 4th rib. There is no pneumothorax.
[2025-01-08] MEDS ORDERED: INDO50CA82 PO (19:15)
== END 2025-01-08 19:25 | disposition home or self-care (01) ==
LOC: ER 17:24
DX: S22.41XA Multiple fractures of ribs, right side, initial encounter for closed fracture (principal); F12.90 Cannabis use, unspecified, uncomplicated; F17.210 Nicotine dependence, cigarettes, uncomplicated; F19.90 Other psychoactive substance use, unspecified, uncomplicated; F10.90 Alcohol use, unspecified, uncomplicated; F41.9 Anxiety disorder, unspecified; F32.A Depression, unspecified; Z79.899 Other long term (current) drug therapy; Z87.11 Personal history of peptic ulcer disease; Y90.9 Presence of alcohol in blood, level not specified; W08.XXXA Fall from other furniture, initial encounter; Y93.72 Activity, wrestling; Y92.89 Other specified places as the place of occurrence of the external cause; Y99.8 Other external cause status
CPT/HCPCS: 72070; 96372; 99284; J1100; J1885